=== PATIENT | female | born 1965 | race Caucasian/White ===

== ENCOUNTER → 2016-11-30 | Outpatient (CLI) | payer OTHER | LOC: CIMAGING 14:10 | PROVIDERS: ATTEND Podiatrist Foot & Ankle Surgery | DX: M20.11 Hallux valgus (acquired), right foot (principal); M19.071 Primary osteoarthritis, right ankle and foot | CPT/HCPCS: 73630-PO ==

== ENCOUNTER → 2016-12-18 | Outpatient (CLI) | payer OTHER | LOC: BMCIMAGING 15:10 | PROVIDERS: ATTEND Podiatrist Foot & Ankle Surgery | DX: M79.671 Pain in right foot (principal) ==

== ENCOUNTER → 2017-01-15 | Outpatient (CLI) | payer OTHER | LOC: BMCIMAGING 14:30 | PROVIDERS: ATTEND Podiatrist Foot & Ankle Surgery | DX: M12.872 Other specific arthropathies, not elsewhere classified, left ankle and foot (principal); M77.31 Calcaneal spur, right foot ==